=== PATIENT | male | born 1955 | race Caucasian/White ===

== ENCOUNTER 2024-04-10 11:21 | Emergency (ER) | payer MEDICARE, OTHER, SELFPAY ==
[2024-04-10 11:34] VITALS: BP 141/83
[2024-04-10 11:53] LABS: % Basophils 0.3 % (0-2); % Immature Granulocytes 0.2 % (0-0.5); % Lymphocytes 4.9 % (20.5-51.1); % Neutrophils 87.6 % (42.2-75.2); Absolute Eosinophils 0.1 10^3/uL (0-0.7); Absolute Lymphocytes 0.5 10^3/uL (1.2-3.4); Absolute Monocytes 0.6 10^3/uL (0.1-0.6); Absolute Neutrophils 8.1 10^3/uL (1.4-6.5); Hemoglobin 14.4 g/dL (13.0-18.0); Mean Corp Hgb Conc. 34.3 g/dL (33.0-37.0); Mean Corpuscular Hgb 32.8 pg (27.0-31.0); Mean Corpuscular Volume 95.7 fL (80.0-94.0); Mean Platelet Volume 10.6 fL (7.4-10.4); Nucleated Red Blood Cells % 0 % (-); Platelet Count 180 10^3/uL (130-400); Red Blood Cell Count 4.39 10^6/uL (4.70-6.10); White Blood Cell Count 9.2 10^3/uL (4.8-10.8)
[2024-04-10 11:57] LABS: Urine Albumin Negative (Neg - Trace); Urine Bilirubin Negative (Negative); Urine Character Clear (Clear); Urine Color Yellow; Urine Glucose Negative (Negative); Urine Ketone Negative (Negative); Urine Leukocyte Negative (Negative); Urine Nitrite Negative (Negative); Urine Occult Blood Negative (Negative); Urine Urobilinogen Negative (Neg - 1+); Urine pH 6.5 (5.0-9.0)
[2024-04-10 12:08] LABS: ALT (SGPT) 35 U/L (0-50); AST (SGOT) 43 U/L (17-59); Albumin 4.5 g/dl (3.5-5.0); Alkaline Phosphatase 88 U/L (38-126); Blood Urea Nitrogen 19 mg/dl (9-20); Calcium 9.2 mg/dl (8.4-10.2); Carbon Dioxide 26 mmol/L (22-30); Chloride 100 mmol/L (98-107); Glucose 111 mg/dl (70-99); Potassium 4.6 mmol/L (3.5-5.1); Sodium 134 mmol/L (135-145); Total Bilirubin 0.9 mg/dl (0.2-1.3); eGFR > 60.00
--- NOTE | 2024-04-10 14:08 | ED.GENMED ---
History of Present Illness
General
Chief Complaint: Urinary Symptoms
Source: patient and spouse
Exam Limitations: none
Time Seen by Provider: 04/10/24 13:58
Travel History
Have you had any contact with someone who has COVID-19?: No
Do you have any symptoms of coronavirus? Fever > 100 degrees, chills, cough, shortness of breath, sore throat, loss of taste or smell, muscle aches, or headache?: No
History of Present Illness
History of Present Illness:
68-year-old male right back/flank pain started 2 days ago. Nontraumatic. Patient was on a long bike ride over the weekend however. Pain went away yesterday but recurred again last evening. Associated with nausea. No obvious musculoskeletal
component. No pleuritic component. No abdominal pain no fever some mild urinary burning overnight. No history of same. No preceding pain management
Past History
Past History
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
a child)
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
Social History
Tobacco: Non-smoker
Alcohol: Occasional
Personal:
Living: with family
Employment: Retired
Family History
Family History: Cancer (Sr., breast cancer)
Review of Systems
Review of Systems
All Other Systems: Not applicable
Constitutional: Denies fever
ABD/GI: Reports no symptoms
Phy Exam
Physical Exam
Physical Exam:
GENERAL: Alert and oriented in no apparent distress. Ambulated from the bathroom without difficulty
EYE: Orbits normal.
NECK: Supple
CARDIAC: Regular rate and rhythm without any obvious murmurs.
LUNGS: Clear breath sounds,normal
ABDOMEN: Soft, without focal tenderness or distention. No CVA tenderness
NEUROLOGICAL: Alert and oriented , grossly non-focal
SKIN: Warm and dry, no rash or lesion, no discoloration, skin intact.
MUSCULOSKELETAL: No edema,no deformity.Good color
PSYCH: Normal and appropriate interaction.
Course
Orders/Labs/Results
Orders:
Orders
04/10/24 11:43
Complete Blood Count/With Diff Urgent
Comprehensive Metabolic Panel Urgent
Lipase Urgent
Comment: ADD ON
Urinalysis Reflex To Culture Urgent
Date Specimen was Collected: 04/10/24
Time Specimen was Collected: 11:37
04/10/24 14:06
Add On- LAB Urgent
Tests Added?: lipase
Acetaminophen [Tylenol] 1,000 mg PO NOW STA
Ondansetron HCl [Zofran] 4 mg PO NOW STA
04/10/24 14:07
CT Abd/pel Without Iv Or Oral Urgent
Comment:
Reason For Exam: Right flank pain
04/10/24 15:40
CT Abd/Pel (IV only)-DH only Urgent
Comment:
Reason For Exam: Right flank pain
Abnormal Lab Results
04/10/24
11:43
RBC 4.39 L 10^6/uL
(4.70-6.10)
MCV 95.7 H fL
(80.0-94.0)
MCH 32.8 H pg
(27.0-31.0)
MPV 10.6 H fL
(7.4-10.4)
Absolute Neuts (auto) 8.1 H 10^3/uL
(1.4-6.5)
Absolute Lymphs (auto) 0.5 L 10^3/uL
(1.2-3.4)
Neutrophils % 87.6 H %
(42.2-75.2)
Lymphocytes % 4.9 L %
(20.5-51.1)
Sodium 134 L mmol/L
(135-145)
Glucose 111 H mg/dl
(70-99)
04/10/24 11:43
04/10/24 11:43
Vital Signs
Initial and Last Documented VS:
Initial Vital Signs
Temp Pulse Resp BP Pulse Ox
99.1 F 86 18 141/83 98
04/10/24 11:34 04/10/24 11:34 04/10/24 11:34 04/10/24 11:34 04/10/24 11:34
Last Documented Vital Signs
Temp Pulse Resp BP Pulse Ox
99.1 F 86 18 127/74 96
04/10/24 11:34 04/10/24 11:34 04/10/24 11:34 04/10/24 16:00 04/10/24 16:15
MDM/Problems Addressed
Differential Diagnosis Includes:
Patient with intermittent right mid back pain with some radiation to the flank x 2 days. Associated with nausea. Would be most consistent with a kidney stone however no hematuria. This of course does not totally rule it out. Doubt gallbladder.
Patient has no right upper quadrant tenderness and no abdominal pain. No rash. Nothing to support zoster. Possibly musculoskeletal although not clearly musculoskeletal. Workup in progress
*Radiology
Radiology exam reviewed: radiology read reviewed (No acute findings on either CT. For CT had some bladder wall thickening. Not described on second CT)
*Pulse Oximetry
Patient hypoxic: no
*Critical Care Note
Total Time (30-74mins, 75-104mins- exclusive of procedures): Not Applicable
Data Reviewed
Review of Other/Old Records Reveals: Labs and Testing
Update Note
Update Note:
No serious etiology found for patient's symptoms. Is remained clinically stable. Labs normal urine negative CT negative. Discharged to follow-up.
ED Attending Note
-
Portions of this chart may have been created with voice recognition software.� Occasional wrong word or��sound alike� substitutions may have occurred due to the inherent limitations of voice recognition software.
Discharge Plan
Departure
Patient Disposition: Home (Routine Discharge)
Date of Disposition: 04/10/24
Time of Disposition: 18:17
Patient with high blood pressure during this ER visit?: Yes
Discharge Problem:
Right back pain
Instructions: Flank Pain (DC), Back Pain, BLOOD PRESSURE
Prescriptions:
New
ondansetron 4 mg tablet,disintegrating
4 mg PO TIDPRN PRN (Reason: nausea/vomiting) Qty: 10 0RF
No Action
lisinopril 20 MG tablet
20 mg PO DAILY
omeprazole 40 MG capsule,delayed release(DR/EC)
40 mg PO DAILY
aspirin 81 MG tablet,delayed release (DR/EC)
81 mg PO DAILY
rosuvastatin 20 MG tablet
20 mg PO QPM
metoprolol tartrate 25 MG tablet
25 mg PO BID
amiodarone [Pacerone] 200 MG tablet
200 mg PO BID Qty: 60 0RF
furosemide 40 MG tablet
40 mg PO DAILY Qty: 5 0RF
Rx Instructions:
take for 5 days then stop
acetaminophen [Tylenol Extra Strength] 500 MG tablet
1,000 mg PO Q6HPRN PRN (Reason: mild-mod pain) 0RF
potassium chloride [Klor-Con M20] 20 MEQ tablet,ER particles/crystals
20 meq PO DAILY Qty: 5 0RF
Rx Instructions:
take for 5 days then stop
oxycodone 5 MG tablet
5 mg PO Q4HPRN PRN (Reason: MILD PAIN (SEE COMMENT)) Qty: 40 0RF
sennosides-docusate sodium 1 TABLET tablet
1 tab PO Q12 0RF
warfarin [Jantoven] 5 MG tablet
5 mg PO DAILY Qty: 45 1RF
Rx Instructions:
take 1 and 1/2 tabs daily or as directed
metronidazole 500 mg Tablet
500 mg PO TID Qty: 21 0RF
levofloxacin 500 mg Tablet
500 mg PO DAILY Qty: 7 0RF
oxycodone-acetaminophen [Percocet] 5-325 mg Tablet
1 tab PO Q6HPRN PRN (Reason: pain) Qty: 14 0RF
dicyclomine 10 mg capsule
10 mg PO QID Qty: 7 0RF
Referrals:
Antonio Martinez MD [Family Provider] - Follow up in 2-3 days
Interventions
Interventions:
*Risk Screen - Suicide Last Done: 04/10/24 14:38
*General Assessment Last Done: 04/10/24 14:38
*Neglect/Abuse Screening Last Done: 04/10/24 14:38
ED- Fall Risk Assessment Last Done: 04/10/24 18:26
*ED COVID-19 Vaccine History Last Done: 04/10/24 11:34
*Nursing Disposition Last Done: 04/10/24 18:26
ED-Male Genitourinary Assessment Last Done: 04/10/24 14:40
Discharge Date and Time
Discharge Date/Time: 04/10/24 18:33
Print Language: SWISS
[2024-04-10 14:33] LABS: Lipase 110 U/L (23-300)
[2024-04-10 14:38] VITALS: BMI 30.6
[2024-04-10] MEDS: TYLENOL 1000 MG PO (14:48)
[2024-04-10] MEDS: ZOFRAN 4 MG PO (14:49)
[2024-04-10 15:00] VITALS: BP 127/73
[2024-04-10 16:00] VITALS: BP 127/74
== END 2024-04-10 18:33 | disposition home or self-care (01) ==
LOC: EMR 11:21
PROVIDERS: Emergency Medicine; EMERGENCY PHYSICIAN Emergency Medicine; FAMILY PHYSICIAN Family Medicine
DX: M54.9 Dorsalgia, unspecified (principal); K21.9 Gastro-esophageal reflux disease without esophagitis; I10 Essential (primary) hypertension; E78.00 Pure hypercholesterolemia, unspecified; I38 Endocarditis, valve unspecified; I35.0 Nonrheumatic aortic (valve) stenosis; Z80.3 Family history of malignant neoplasm of breast; Z90.49 Acquired absence of other specified parts of digestive tract; Z95.3 Presence of xenogenic heart valve
CPT/HCPCS: 99284; 74176; 74177; 80053; 81003; 83690; 85025; Q9967

== ENCOUNTER → 2024-04-18 06:30 | Day surgery (SDC) | payer MEDICARE, OTHER, SELFPAY | LOC: GI 06:30 | PROVIDERS: ATTENDING PHYSICIAN Internal Medicine Gastroenterology | DX: R13.10 Dysphagia, unspecified (principal); K44.9 Diaphragmatic hernia without obstruction or gangrene; K22.89 Other specified disease of esophagus; K31.7 Polyp of stomach and duodenum; K22.70 Barrett's esophagus without dysplasia | CPT/HCPCS: 43239; 88305 ==

== ENCOUNTER → 2024-05-04 08:28 | Outpatient (REF) | payer MEDICARE, OTHER, SELFPAY | LOC: RST 08:28 | PROVIDERS: ATTENDING PHYSICIAN Internal Medicine Gastroenterology; FAMILY PHYSICIAN Family Medicine | DX: R13.19 Other dysphagia (principal) | CPT/HCPCS: 74230; 92611 ==

== ENCOUNTER → 2024-06-27 08:28 | Outpatient (REF) | payer MEDICARE, OTHER, SELFPAY | LOC: RCS 08:28 | PROVIDERS: ATTENDING PHYSICIAN Internal Medicine Cardiovascular Disease; FAMILY PHYSICIAN Family Medicine | DX: Z95.2 Presence of prosthetic heart valve (principal) | CPT/HCPCS: 93306 ==

== ENCOUNTER → 2025-09-17 10:23 | Outpatient (REF) | payer MEDICARE, OTHER, SELFPAY | LOC: HWRCS 10:23 | PROVIDERS: ATTENDING PHYSICIAN Internal Medicine Cardiovascular Disease; FAMILY PHYSICIAN Family Medicine | DX: I48.0 Paroxysmal atrial fibrillation (principal) | CPT/HCPCS: 93306 ==